=== PATIENT | male | born 1975 | race Caucasian/White ===

== ENCOUNTER → 2017-01-06 | Outpatient (CLI) | payer BC ==
--- NOTE | 2017-01-07 07:57 | SPLIT NIGHT TECHNICIAN REPORT ---
[facility] Split Night Polysomnogram - [employer] Report Study date: 01/06/2017 Referring Physician: Analilia Kirkland M.D. 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 Date of : 1975 Height: 41 years, Height 5' 6" Sex: Male Weight: 270 lbs Age: 41 Neck Circum: 19.5 BMI: Medications: 43.57 Amoxicillin 500mg, Ciprodex 0.3%-0.1%ear drops, Hydrocodone 5mg-acetaminophen 325mg, Prednisone 10mg Patient History Study started on room air with no ETCO2 monitoring in room #6. He complains of EDS and loud snoring. He never feels rested. He awakens from sleep due to pain in his back and shoulders or to urinate. His ESS=5/24. Neck circ=19.5. Parameters Monitored NPSG: E1-M2, E2-M1, Fp1-M2, Fp2-M1, F3-M2, F4-M2, F4-M1, C3-M2, C4-M2, C4-M1, O1-M2, O2-M2, O2-M1, T3-M2, T4-M1, P3-M2, P4-M1, CHIN1, CHIN2, HR, EKG, Legs, PFLOW, SNOR, FLOW, CFLOW, Tidal Volume, THOR, ABDO, SpO2, PLTH, CPRESS, ETCO2 Wave, ETCO2, pH SLEEP SUMMARY DATA DIAGNOSTIC TREATMENT Lights Out: 10:18:51 PM 1:01:51 AM Lights On: 12:52:51 AM 5:20:21 AM Total Recording Time (TRT): 154.0 min. 258.5 min. Total Sleep Time (TST): 122.0 min. 187.5 min. NREM Time: 122.0 min. 125.0 min. REM Time: 0.0 min. 62.5 min. Sleep Period Time (SPT): 128.5 min. 203.5 min. Sleep Efficiency (SE): 79 % 73 % Sleep Latency: 25.5 min. 55.0 min. Arousal Index: 12.8 9.0 PAP Treatment Levels: 5, 6, 7, 9, 11, 13, 14, 15 * Optimal Pressure(s) SLEEP STAGING DATA DIAGNOSTIC TREATMENT Duration (min) TST % Duration (min) TST % Stage Wake: 32.0 min. -- 71.0 min. -- WASO: 6.5 min. -- 16.0 min. -- NREM: 122.0 min. 100 % 125.0 min. 67 % Stage N1: 4.0 min. 3 % 10.0 min. 5 % Stage N2: 80.0 min. 66 % 90.0 min. 48 % Stage N3: 38.0 min. 31 % 25.0 min. 13 % REM: 0.0 min. 0 % 62.5 min. 33 % POSITIONAL DATA Event Count Index Event Count Index Supine: N/A N/A 29 25.4 Supine NREM: N/A N/A 14 43.0 Supine REM: N/A N/A 15 18 Non-Supine: 64 31.5 10 5.0 Non-Supine NREM: 64 31.5 7 4.0 Non-Supine REM: N/A N/A 3 13.3 AROUSAL SUMMARY DATA: Event Count Index Event Count Index Apnea Arousals: 0 2.5 1 1.0 Hypopnea Arousals: 4 2.0 8 2.6 Snore Arousals: 14 6.9 7 2.2 PLM Arousals: 0 0.0 0 0.0 Non-Specific Arousals: 10 4.9 12 3.8 Total Arousals: 26 12.8 28 9.0 MYOCLONUS (PLM) Event Count Index Event Count Index PLM: 0 0.0 0 0.0 PLM AROUSAL: 0 0.0 0 0.0 PLM W/O AROUSAL 0 0.0 0 0.0 PLM W/RESP EVENT 0 0.0 0 0.0 MYOCLONUS (PLM) Event Count Index Event Count Index LM: 1 4.9 4 1.3 LM AROUSAL: 1 0.5 0 0.0 LM W/O AROUSAL LM W/RESP EVENT LM NON SPECIFIC 9 4.4 3 1.0 HEART RATE DATA DIAGNOSTIC TREATMENT Sleep (bpm): 69 65 REM (bpm): N/A 86 NREM (bpm): 86 91 Tachycardia Count: 0 0 Tachycardia Duration: 0.00 0 Bradycardia Count: 0 0 Bradycardia Duration: 0.00 0 DIAGNOSTIC PORTION TREATMENT PORTION RESPIRATORY DATA Event Count Index Event Count Index AHI: -- 31.5 -- 12.5 RDI: -- 31.5 -- 12 Obstructive Apnea: 5 2.5 1 0.3 Central Apnea: 0 0.0 2 0.6 Mixed Apnea: 0 0.0 0 0.0 Hypopnea: 59 29.0 36 11.5 RERA: 0 0.0 0 0.0 Total Apneas: 5 2.5 3 1.0 RESPIRATORY DATA REM NREM SLEEP REM NREM SLEEP Supine Position: Obstructive Apneas: N/A N/A N/A 0 0 0 Central Apneas: N/A N/A N/A 1 1 2 Mixed Apneas: N/A N/A N/A 0 0 0 Hypopneas: N/A N/A N/A 14 13 27 RERA N/A N/A N/A 0 0 0 Total Supine Events: N/A N/A N/A 15 14 29 Supine AHI: N/A N/A N/A 18 43.0 25.4 Supine RDI: N/A N/A N/A 18.4 43.0 25.4 REM NREM SLEEP REM NREM SLEEP Non-Supine Position: Obstructive Apneas: N/A 5 5 1 0 1 Central Apneas: N/A 0 0 0 0 0 Mixed Apneas: N/A 0 0 0 0 0 Hypopneas: N/A 59 59 2 7 9 RERA N/A 0 0 0 0 0 Total Supine Events: N/A 64 64 3 7 10 Supine AHI: N/A 31.5 31.5 13.3 4.0 5.0 Supine RDI: N/A 31.5 31.5 13.3 4.0 5.0 OXYGEN DESTAURATION DATA: Event Count Index Event Count Index REM Desaturations: N/A N/A 20 19.2 NREM Desaturations: 135 66.4 35 16.8 SNORE DATA DIAGNOSTIC TREATMENT Snore Time: 34.3 1:56:51 AM Snore TST%: 13 14 Snore Arousal Count: 14 7 Snore Arousal Index: 6.9 2.2 Desaturation Event Summary: Minimum %SpO2 Event Count Mean/Min/Max Duration(sec.) Desaturation Index % Time In Bed > 90 128 23.5 / 5.0 / 60.0 51.4 37.7 86 - 90 152 22.1 / 7.0 / 58.5 51.4 44.7 81 - 85 28 21.0 / 6.8 / 54.5 29.9 14.2 76 - 80 6 36.5 / 13.3 / 58.8 58.3 1.6 71 - 75 2 30.5 / 25.8 / 35.3 30.1 1.0 66 - 70 1 35.3 / 35.3 / 35.3 32.5 0.5 61 - 65 0 N/A 0.0 0.2 56 - 60 0 N/A 0.0 0.1 51 - 55 0 N/A 0.0 0.0 < 50 0 N/A 0.0 0.0 OXYGEN SATURATION DATA DIAGNOSTIC TREATMENT SpO2 Mean Sleep: 86 % 89 % SpO2 Mean REM: N/A % 86 % SpO2 Mean NREM: 86 % 91 % SpO2 Minimum Sleep: 75 % 57 % SpO2 Minimum REM: N/A % 57 % SpO2 Minimum NREM: 75 % 75 % Time Below 90% (TST): 100.6 63.3 Time Below 88% (TST): 81.0 32.4 Total REM NREM Awake <50% 0.0 min. 0.0 min. 0.0 min. 0.0 min. 51 - 60% 0.5 min. 0.5 min. 0.0 min. 0.0 min. 61 - 70% 2.6 min. 2.6 min. 0.0 min. 0.0 min. 71 - 80% 10.2 min. 7.3 min. 2.9 min. 0.0 min. 81 - 90% 233.6 min. 38.2 min. 148.0 min. 47.4 min. 91 - 100% 149.5 min. 13.9 min. 95.8 min. 39.8 min. Average 89 86 89 90 Minimum SpO2 57 57 75 82 Desaturation Event Index 33.3 19.2 41.3 23.3 # Desat. Events below 89% 193 15 154 24 Time(%) with Saturation below 89% 39.0 8.9 25.8 4.3 Time(min.) with Saturation below 89% 154.4 35.4 102.1 16.9 Recording [employer] Comments: Mr. Gallego slept in the right, left and supine positions. No cardiac arrhythmia or PLM's noted. No bruxism noted. Snoring was noted and scored as a 5 on a scale of 1 through 5. (0=no snoring, 5=snoring loud enough to be heard through a closed door or down the delgado way) At 1:00am he had met specific Split-Night criteria during the diagnostic portion of this study. CPAP was initiated at +5 CMH2O and up-titrated to an optimal level of +15 CMH2O. A medium Quattro Air full face mask by [employer] was used during titration He awoke to use the restroom once during the night. He stated that he slept worse than usual. The final report will be interpreted and signed by a sleep physician. The completed physician report will then be placed in the patient medical record. Therapy Event: Therapy (cm H20) 0 5 6 7 9 11 13 14 15 Total Time at Pressure (min.) 154.0 65.8 5.9 6.2 5.5 6.9 63.6 61.0 43.6 TST at Pressure (min.) 122.0 3.8 5.4 6.2 5.5 6.9 59.6 61.0 39.1 # Periods 1 1 1 1 1 1 1 1 1 Sleep Onset (min.) 25.5 55.0 0.0 0.0 0.0 0.0 0.0 0.0 0.0 REM Onset (min.) N/A N/A N/A N/A 3.1 0.0 0.0 53.0 0.0 Sleep Efficiency % 79 5 91 100 100 100 93 100 89 Wakefulness (%) 20.8 94.2 8.4 0.0 0.0 0.0 6.3 0.0 10.3 Wakefulness (min.) 32.0 62.0 0.5 0.0 0.0 0.0 4.0 0.0 4.5 NREM 1 (%) 2.6 5.0 20.2 0.0 0.0 0.0 2.4 0.8 8.0 NREM 1 (min.) 4.0 3.3 1.2 0.0 0.0 0.0 1.5 0.5 3.5 NREM 2 (%) 51.9 0.8 71.4 100.0 55.8 0.0 29.0 45.2 68.8 NREM 2 (min.) 80.0 0.5 4.2 6.2 3.1 0.0 18.5 27.5 30.0 NREM 3 (%) 24.7 0.0 0.0 0.0 0.0 0.0 0.0 41.0 0.0 NREM 3 (min.) 38.0 0.0 0.0 0.0 0.0 0.0 0.0 25.0 0.0 REM (%) 0.0 0.0 0.0 0.0 44.2 100.0 62.3 13.0 12.8 REM (min.) 0.0 0.0 0.0 0.0 2.4 6.9 39.7 7.9 5.6 # Arousals 26 4 5 2 0 0 7 5 5 Arousal Index 12.8 63.1 55.1 19.3 0.0 0.0 7.0 4.9 7.7 # Snore 746 27 46 53 60 55 298 409 41 Snore Index 366.9 426.2 507.0 512.6 658.6 476.3 300.0 402.6 62.9 AHI 31.5 0.0 77.2 48.4 32.9 43.3 9.1 5.9 6.1 AHI Supine N/A 0.0 77.2 48.4 32.9 43.3 12.0 N/A 40.0 AHI Non-Supine 31.5 0.0 N/A N/A N/A N/A 3.1 5.9 4.8 NREM AHI 31.5 0.0 77.2 48.4 0.0 N/A 6.0 3.4 7.2 REM AHI N/A N/A N/A N/A 74.5 43.3 10.6 22.8 0.0 RDI 31.5 0.0 77.2 48.4 32.9 43.3 9.1 5.9 6.1 # Obstructive 5 0 0 0 0 0 0 1 0 # Central Ap 0 0 0 0 0 0 2 0 0 # Mixed 0 0 0 0 0 0 0 0 0 # Hypopneas 59 0 7 5 3 5 7 5 4 RERAS 0 0 0 0 0 0 0 0 0 Total Respiratory Events 64 0 7 5 3 5 9 6 4 Time Below SpO2 89.00% (min.) 92.9 0.4 2.2 2.7 5.0 6.4 27.4 0.5 0.1 Mean NREM SpO2 (%) 86 90 88 88 86 N/A 90 91 92 Mean REM SpO2 (%) N/A N/A N/A N/A 75 75 87 92 93 Mean Sleep SpO2 (%) 86 90 88 88 81 75 88 91 92 Min NREM SpO2 (%) 75 85 80 75 82 N/A 85 87 88 Min REM SpO2 (%) N/A N/A N/A N/A 64 57 64 87 89 Position Supine (min.) 0.0 3.0 5.4 6.2 5.5 6.9 40.0 0.0 1.5 Position Non-supine (min.) 122.0 0.8 0.0 0.0 0.0 0.0 19.6 61.0 37.6 LM Index Sleep 4.9 0.0 0.0 0.0 0.0 0.0 0.0 2.0 3.1 LM Index NREM 4.9 0.0 0.0 0.0 0.0 N/A 0.0 2.3 3.6 LM Index REM N/A N/A N/A N/A 0.0 0.0 0.0 0.0 0.0 Mean Heart Rate (bpm) 69 69 68 66 74 75 66 62 63 Min Heart Rate (bpm) 53 58 55 56 58 53 53 52 52
--- NOTE | 2017-01-08 09:51 | POLYSOMNOGRAPH REPORT ---
CLINICAL DATA: A 41-year-old male with BMI of 43.6, referred by Dr. Analilia Kirkland, with a history of excessive daytime sleepiness and loud snoring. He awakens from sleep due to pain in his back and shoulders. He never feels rested. This was a split night study. SLEEP ARCHITECTURE: For the diagnostic portion of the study, total sleep period was 128.5 minutes. Total sleep time was 122 minutes, all non-REM sleep. Sleep latency was 25.5 minutes. Sleep efficiency was 79%. Arousal index was 12.8. Sleep consisted of stage N1 3%, N2 66%, N3 31%. For the treatment portion of the study, total sleep period was 203.5 minutes. Total sleep time was 187.5 minutes divided between 125 minutes of non-REM sleep and 62.5 minutes of REM sleep. Sleep latency was 55 minutes. Sleep efficiency was 73%. Arousal index was 9. Sleep consisted of stage N1 5%, N2 48%, N3 13%, REM 33%. AROUSAL DATA: Prior to treatment, 26 arousals were recorded for an index of 12.8 per hour. During treatment, 28 arousals were recorded for an index of 9 per hour. PERIODIC LIMB MOVEMENTS DATA: Prior to treatment, 9 limb movements during sleep were noted for an index of 4.4 per hour. During treatment, 4 limb movements were noted during sleep with arousal index of 1 per hour. EKG: Heart rate ranged from 65-91 beats per minute. No arrhythmias were noted. RESPIRATORY DATA: Severe sleep apnea was documented prior to treatment. The diagnostic AHI was 31.5. There were 5 obstructive apneic episodes and 59 hypopneic episodes recorded. The average AHI during treatment was 12.5. There was 1 obstructive and 2 central apneic episodes and 36 hypopneic episodes recorded. OXIMETRY DATA: Nocturnal hypoxemia was seen prior to treatment. Oxygen addy prior to treatment was 75%. Mean saturation with treatment was 89%. BUTTER LIQUEFIER'S COMMENTS AND TREATMENT SUMMARY: The patient slept in the right, left, and supine positions. Snoring was severe, rated 5 on a scale of 1-5. At 1 a.m., he met split night criteria. A medium Quattro Air full facemask by [employer]) was used during the titration. The patient was started at 5 cm of water pressure and titrated up to his final pressure setting of 15 cm water pressure. At his final pressure setting, the patient slept for 39 minutes with an AHI of 6.1 and correction of his hypoxemia. IMPRESSION: Severe sleep apnea/hypopnea with diagnostic apnea-hypopnea index of 31.5 with nocturnal hypoxemia corrected with CPAP at 15 cm water pressure, medium Quattro full facemask by [employer]. RECOMMENDATIONS: The patient should be started on the above noted treatment regimen and seen back in followup within 90 days to document efficacy and compliance. Sleep medicine consultation may be of benefit. SANDY
== END | disposition home or self-care (01) ==
LOC: C.NEUR 21:00
PROVIDERS: ATTEND Family Medicine
DX: G47.00 Insomnia, unspecified (principal)